=== PATIENT | male | born 1980 | race Two or more races ===

== ENCOUNTER 2024-06-08 12:06 | Outpatient (CLI) | payer MEDICAID, SELFPAY | END 2024-06-08 12:07 | disposition home or self-care (01) | PROVIDERS: Visit Provider Emergency Medicine | DX: S69.91XA Unspecified injury of right wrist, hand and finger(s), initial encounter (principal); V49.9XXA Car occupant (driver) (passenger) injured in unspecified traffic accident, initial encounter; Y92.410 Unspecified street and highway as the place of occurrence of the external cause | CPT/HCPCS: A0998 ==